=== PATIENT | male | born 1985 | race Hispanic/Latino ===

== ENCOUNTER → 2022-02-18 | Day surgery (SDC) | payer BC ==
[~2022-02-18] MED LIST: ALLEGRA ALLERGY60 MG PO; FENTANYL CITRATE/PF 100MCG/2 ML INJ ONE; LIDOCAINE HCL 2% LOCAL INJ 5 ML SDV VIAL INJ ONE; MIDAZOLAM HCL 2 MG/2 ML VIAL ONE; PRILOSEC OTC20 MG; PROPOFOL IV EMULSION 10 MG/ML 20 ML VIAL ONE
[2022-02-18 08:40] VITALS: BP 132/89
== END | disposition home or self-care (01) ==
LOC: OR 06:10
PROVIDERS: ATTEND Internal Medicine Gastroenterology
DX: K29.70 Gastritis, unspecified, without bleeding (principal); K20.90 Esophagitis, unspecified without bleeding; K31.89 Other diseases of stomach and duodenum; K21.9 Gastro-esophageal reflux disease without esophagitis; K44.9 Diaphragmatic hernia without obstruction or gangrene; Z71.3 Dietary counseling and surveillance; Z71.89 Other specified counseling; J30.2 Other seasonal allergic rhinitis; R03.0 Elevated blood-pressure reading, without diagnosis of hypertension; R06.83 Snoring; Z01.812 Encounter for preprocedural laboratory examination; Z20.822 Contact with and (suspected) exposure to COVID-19; Z79.899 Other long term (current) drug therapy; Z68.36 Body mass index [BMI] 36.0-36.9, adult; Z86.16 Personal history of COVID-19
CPT/HCPCS: 43239; 43450; C9113; J2001; J2250; J2704; J3010; U0002

== ENCOUNTER → 2024-02-07 | Day surgery (SDC) | payer BC ==
[~2024-02-07] MED LIST changes: +LACTATED RINGER'S 1,000 ML BAG ONE; +LACTATED RINGER'S 1,000 ML ONE; +METOCLOPRAMIDE HCL 10 MG/2ML VIAL ONE
[2024-02-07] MEDS: LACTATED RINGER'S 1,000 ML BAG IV ONE (07:45)
[2024-02-07 09:33] VITALS: TEMP 98.1
[2024-02-07 10:00] VITALS: BP 115/72; PULSE 84; RESP 16; O2SAT 97
[2024-02-07 10:06] LABS: % IRON SATURATION 6 % (15-50); IRON 35 ug/dL (65-175); TOTAL IRON BINDING CAPACITY 599 ug/dL (261-478); TRANSFERRIN 428 mg/dL (174-364)
[2024-02-07 10:55] LABS: FOLATE 17.9 ng/mL (7.0-15.4)
[2024-02-13 08:14] LABS: ENDOMYSIAL ANTIBODIES, IGA Negative (Negative)
[2024-02-13 09:48] LABS: IMMUNOGLOBULIN A 108 mg/dL (90-386); TISSUE TRANSGLUTAMINASE IGA AB <2 U/mL (0-3)
== END | disposition home or self-care (01) ==
LOC: OR 07:08
PROVIDERS: ATTEND Internal Medicine Gastroenterology
DX: D64.9 Anemia, unspecified (principal); K29.70 Gastritis, unspecified, without bleeding; K21.9 Gastro-esophageal reflux disease without esophagitis; K20.90 Esophagitis, unspecified without bleeding; K44.9 Diaphragmatic hernia without obstruction or gangrene; K57.30 Diverticulosis of large intestine without perforation or abscess without bleeding; K64.8 Other hemorrhoids; I10 Essential (primary) hypertension; J30.2 Other seasonal allergic rhinitis; Z01.810 Encounter for preprocedural cardiovascular examination; Z79.899 Other long term (current) drug therapy
CPT/HCPCS: 36415; 43239; 45378; 82607; 82746; 82784; 83516; 83540; 84466; 85045; 86256; 93005; C9113; J2001; J2250; J2704; J2765; J3010; J7121

== ENCOUNTER → 2024-12-13 | Outpatient (REF) | payer BC ==
[~2024-12-13] MED LIST changes: -FENTANYL CITRATE/PF 100MCG/2 ML INJ ONE; -LACTATED RINGER'S 1,000 ML BAG ONE; -LACTATED RINGER'S 1,000 ML ONE; -LIDOCAINE HCL 2% LOCAL INJ 5 ML SDV VIAL INJ ONE; -METOCLOPRAMIDE HCL 10 MG/2ML VIAL ONE; -MIDAZOLAM HCL 2 MG/2 ML VIAL ONE; -PROPOFOL IV EMULSION 10 MG/ML 20 ML VIAL ONE
== END ==
LOC: DX 08:16
PROVIDERS: ATTEND Nurse Practitioner
DX: D64.89 Other specified anemias (principal)
CPT/HCPCS: 74250